=== PATIENT | female | born 1995 | race Caucasian/White ===

== ENCOUNTER 2018-04-01 17:06 | Emergency (ER) | payer MEDICAID ==
[~2018-04-01] VITALS: Ht 162.6 cm; Wt 56.0 kg
[~2018-04-01 17:06] MED LIST: AFRIN; HYDR1TAB PO; METH4TAB81 PO; NORE0.358 PO; [UNRECOGNIZED DRUG - CODE] OT
[2018-04-01 17:18] VITALS: BP 133/82
[2018-04-01 17:42] LABS: CLARITY,URINE Clear (Clear); COLOR,URINE Yellow (Yellow); GLUCOSE, URINE Negative (Neg); KETONES,URINE Negative (Neg); LEUKOCYTE ESTERASE ,URINE Negative (Neg); NITRITES, URINE Negative (Neg); OCCULT BLOOD,URINE Negative (Neg); PROTEIN,URINE Negative (Neg); UROBILINOGEN,URINE 0.2 E.U/dL (0.2-1.0)
[2018-04-01 17:43] LABS: UA COLLECTION TYPE CLN CATCH MIDSTREAM
[2018-04-01 17:44] LABS: URINE HCG NEGATIVE (NEG)
[2018-04-01 17:51] LABS: BASOPHILS % (AUTO) 0.5 % (0-1); EOSINOPHILS % (AUTO) 0.9 % (0-6); HEMATOCRIT 39.7 % (35.0-45.0); HEMOGLOBIN 13.7 g/dl (12.0-16.0); LYMPHOCYTES # (AUTO) 1.2 X10'3 (1.1-4.8); LYMPHOCYTES % (AUTO) 23.4 % (21-51); MEAN CORPUSCULAR HEMOGLOBIN 33.7 PG (27.0-31.0); MEAN CORPUSCULAR HGB CONC 34.5 % (33.0-36.5); MEAN CORPUSCULAR VOLUME 97.5 FL (78-98); MEAN PLATELET VOLUME 7.8 FL (7.4-10.4); MONOCYTES # (AUTO) 0.5 X10'3 (0-0.9); MONOCYTES % (AUTO) 10.1 % (2-12); NEUTROPHILS # (AUTO) 3.4 X10'3 (1.8-7.7); NEUTROPHILS % (AUTO) 65.1 % (42-75); PLATELET COUNT 317 X10'3 (140-440); RED BLOOD COUNT 4.07 X10'6 (4.20-5.60); WHITE BLOOD COUNT 5.2 X10'3 (4.5-11.0)
[2018-04-01 18:07] LABS: ALANINE AMINOTRANSFERASE 23 U/L (12-78); ALBUMIN 4.1 G/DL (3.4-5.0); ALBUMIN/GLOBULIN RATIO 1.3 (1.1-1.5); ALKALINE PHOSPHATASE 63 IU/L (46-116); ANION GAP 7 (8-16); ASPARTATE AMINO TRANSFERASE 15 U/L (10-37); BILIRUBIN,TOTAL 0.3 MG/DL (0.1-1.0); BLOOD UREA NITROGEN 12 MG/DL (7-18); BUN/CREATININE RATIO 15.2 (6.6-38.0); CALCIUM 9.2 MG/DL (8.5-10.1); CHLORIDE 103 MMOL/L (99-107); CREATININE 0.79 MG/DL (0.40-0.90); GLUCOSE 96 MG/DL (70-104); POTASSIUM 3.6 MMOL/L (3.5-5.1); SODIUM 139 MMOL/L (135-145); TOTAL CARBON DIOXIDE 28.7 MMOL/L (24-32); TOTAL PROTEIN 7.2 G/DL (6.4-8.2); eGFR 89 ML/MIN
== END 2018-04-01 20:35 | disposition home or self-care (01) ==
LOC: ER 17:07
DX: R10.2 Pelvic and perineal pain (principal); R10.30 Lower abdominal pain, unspecified; R30.0 Dysuria; R11.0 Nausea; Z90.89 Acquired absence of other organs; Z88.1 Allergy status to other antibiotic agents; Z91.040 Latex allergy status; Z88.8 Allergy status to other drugs, medicaments and biological substances; Z79.899 Other long term (current) drug therapy; Z56.0 Unemployment, unspecified
CPT/HCPCS: 36415; 80053; 81003; 81025; 85025; 87210; 87491; 99284

== ENCOUNTER 2023-12-28 10:26 | Emergency (ER) | payer MEDICAID ==
[~2023-12-28] VITALS: Ht 165.1 cm; Wt 65.9 kg
[2023-12-28 10:35] VITALS: TEMP 98
[2023-12-28] MEDS: normal saline 1000ML IV soln IVB ONE (12:56)
[2023-12-28 13:09] LABS: BASOPHILS % (AUTO) 0.3 % (0-1); EOSINOPHILS # (AUTO) 0.1 X10'3 (0-0.9); EOSINOPHILS % (AUTO) 0.7 % (0-6); HEMATOCRIT 37.5 % (35.0-45.0); HEMOGLOBIN 12.9 g/dl (12.0-16.0); LYMPHOCYTES # (AUTO) 1.4 X10'3 (1.1-4.8); LYMPHOCYTES % (AUTO) 16.5 % (21-51); MEAN CORPUSCULAR HEMOGLOBIN 33.8 PG (27.0-31.0); MEAN CORPUSCULAR HGB CONC 34.3 g/dL (33.0-36.5); MEAN CORPUSCULAR VOLUME 98.3 FL (78-98); MONOCYTES # (AUTO) 0.5 X10'3 (0-0.9); MONOCYTES % (AUTO) 6.2 % (2-12); NEUTROPHILS # (AUTO) 6.4 X10'3 (1.8-7.7); NEUTROPHILS % (AUTO) 76.3 % (42-75); PLATELET COUNT 198 X10'3 (140-440); RED BLOOD COUNT 3.82 X10'6 (4.20-5.60); RED CELL DISTRIBUTION WIDTH 12.6 % (11.5-14.5); WHITE BLOOD COUNT 8.4 X10'3 (4.5-11.0)
[2023-12-28 13:09] LABS: URINE HCG NEGATIVE (NEG)
[2023-12-28 13:14] LABS: CLARITY,URINE SLIGHTLY CLOUDY (Clear); COLOR,URINE ORANGE (Yellow); UA COLLECTION TYPE NON-SPECIFIED
[2023-12-28 13:16] LABS: BACTERIA,URINE 1+ /HPF (Neg); MUCUS STRANDS FEW /LPF (Neg); SQUAMOUS EPITHELIAL CELL,UR MANY /LPF (FEW); WBC,URINE 0-4 /HPF (0-4)
[2023-12-28 13:19] LABS: URINE AMPHETAMINE SCREEN NEGATIVE (Neg); URINE BARBITUATE SCREEN POSITIVE (Neg); URINE BENZODIAZEPINES SCREEN POSITIVE (Neg); URINE CANNABINOID SCREEN POSITIVE (Neg); URINE COCAINE SCREEN NEGATIVE (Neg); URINE METHADONE SCREEN NEGATIVE (Neg); URINE OPIATE SCREEN NEGATIVE (Neg); URINE PHENCYCLIDINE SCREEN NEGATIVE (Neg)
[2023-12-28 13:25] LABS: APTT 22 SECONDS (22-32); INR 0.9 INR; PROTHROMBIN TIME 10.1 SECONDS (9.0-12.0)
[2023-12-28 13:38] LABS: ALBUMIN 3.6 G/DL (3.4-5.0); ANION GAP 10 (8-16); BLOOD UREA NITROGEN 5 MG/DL (7-18); BUN/CREATININE RATIO 8.9 (10.0-20.0); CALCIUM 8.6 MG/DL (8.5-10.1); CHLORIDE 101 MMOL/L (99-107); CREATINE KINASE 95 U/L (26-192); CREATININE 0.56 MG/DL (0.40-0.90); GLUCOSE 100 MG/DL (70-104); LIPASE 31 U/L (16-77); POTASSIUM 3.6 MMOL/L (3.5-5.1); SODIUM 137 MMOL/L (135-145); TOTAL CARBON DIOXIDE 26.3 MMOL/L (24-32); eCRCL 132 ML/MIN; eGFR > 90 ML/MIN
[2023-12-28 13:39] LABS: CREATINE KINASE MB < 0.5 ng/ml (0.3-3.6)
[2023-12-28] MEDS: azithromycin 250mg tablet PO ONE (13:39)
[2023-12-28] MEDS: TINIDAZOLE 500 MG TABLET PO ONE (13:39)
[2023-12-28] MEDS: LEVONORGESTREL 1.5MG tablet 1.5 MG TABLET PO ONE (13:39)
[2023-12-28] MEDS: HYDROcodone/acetaminophen 5mg/325mg tablet PO ONE (13:39)
[2023-12-28] MEDS: CefTRIAXone 500MG IM Kit w/LIDOcaine (for pt below or = to 150kg) IM ONE (13:40)
[2023-12-28 13:43] LABS: ETHANOL < 10 MG/DL (<10)
[2023-12-28] MEDS: chlordiazePOXIDE 25mg capsule PO ONE (13:56)
[2023-12-28 14:00] VITALS: BP 145/76; PULSE 68; RESP 18; O2SAT 98
== END 2023-12-28 15:02 | disposition home or self-care (01) ==
LOC: ER 10:27 → EEVIPCON 10:27 → ER 15:02
DX: F10.129 Alcohol abuse with intoxication, unspecified (principal); R52 Pain, unspecified; F19.10 Other psychoactive substance abuse, uncomplicated; F12.90 Cannabis use, unspecified, uncomplicated; Y90.9 Presence of alcohol in blood, level not specified; Z88.1 Allergy status to other antibiotic agents; Z88.8 Allergy status to other drugs, medicaments and biological substances; Z91.040 Latex allergy status; Z79.899 Other long term (current) drug therapy
CPT/HCPCS: 36415; 80048; 80305; 80320; 81001; 81025; 82550; 82553; 83690; 83735; 83874; 85025; 85610; 85730; 96360; 96372; 99284; J0696; J7030